=== PATIENT | female | born 2000 | race Caucasian/White ===

== ENCOUNTER 2018-06-29 20:44 | Emergency (ER) | payer OTHER ==
[2018-06-29] MEDS ORDERED: methylPREDNISolone NA SUCC 125 MG/2 ML VIAL IVPB ONE (20:48)
[2018-06-29] MEDS ORDERED: FAMOTIDINE 20 MG/50 ML IVPB 20 MG/50 ML MG IVPB ONE (20:48)
[2018-06-29 21:21] VITALS: BP 128/91; PULSE 97; TEMP 98.2; BMI 23.2
--- NOTE | 2018-06-29 21:26 | PDOC ---
Documentation entered by Ashleigh Reyes SCRIBE, acting as scribe for Srinivas Desai MD. Srinivas Desai MD: This documentation has been prepared by the Eric merritt Daisy, SCRIBE, under my direction and personally reviewed by me in its entirety. I confirm that the documentation accurately reflects all work, treatment, procedures, and medical decision making performed by me. History of Present Illness - General Chief Complaint: Allergic Reaction Stated Complaint: ALLERGIC REACTION Time Seen by Provider: 06/29/18 20:48 History Source: Patient Exam Limitations: No Limitations - History of Present Illness Initial Comments: 06/29/18 20:48 The patient is a 18YOF with a known peanut allergy who presents to the ER for possible allergic reaction that began approximately 20 minutes ago. She states she was eating [place] food when she noticed lip swelling, throat itchiness, and facial itchiness. Pt noticed symptoms after eating a few bites of food. Did not see any peanuts in her food but thinks there might have been some cross contamination. Patient's father gave her a benadryl, but it was . She did not have her epi pen with her at the time. Pt denies tongue swelling, difficulty breathing, difficulty swallowing. Denies rash but states her face is itchy. She states she has had similar allergic reaction in the past where she experienced difficulty breathing, vomiting, and diffuse hives. Pt has never been intubated. Denies shortness of breath, chest pain, tongue swelling or rashes. Allergies: Peanut Social: Denies toxic habits Past History - Past Medical History Allergies/Adverse Reactions: Allergies Allergy/AdvReac Type Severity Reaction Status Date / Time nut - unspecified Allergy Verified 06/29/18 21:02 NUTS Allergy Uncoded 06/29/18 20:46 Home Medications: Ambulatory Orders Methylphenidate HCl [Concerta] 54 mg PO DAILY 06/29/18 - Immunization History Immunization Up to Date: Yes - Suicide/Smoking/Psychosocial Hx Smoking Status: No Smoking History: Never smoked Number of Cigarettes Smoked Daily: 0 Review of Systems - Review of Systems Able to Perform ROS?: Yes Comments:: 06/29/18 20:56 "GENERAL/CONSTITUTIONAL: No fever or chills. No weakness. HEAD, EYES, EARS, NOSE AND THROAT: No change in vision. No ear pain or discharge. (+) throat itchiness. (+) facial itchiness. (+) lip swelling. CARDIOVASCULAR: No chest pain, no shortness of breath, no loss of consciousness RESPIRATORY: No cough, wheezing, or hemoptysis. GASTROINTESTINAL: No nausea, vomiting, diarrhea or constipation. GENITOURINARY: No dysuria, frequency, or change in urination. MUSCULOSKELETAL: No joint or muscle swelling or pain. No neck or back pain. SKIN: No rash NEUROLOGIC: No vertigo, no change in strength/sensation. ENDOCRINE: No increased thirst. No abnormal weight change. HEMATOLOGIC/LYMPHATIC: No anemia, easy bleeding, or history of blood clots. ALLERGIC/IMMUNOLOGIC: No hives or skin allergy. *Physical Exam - Physical Exam Comments: 06/29/18 20:54 GENERAL: Awake, alert, and fully oriented, in no acute distress. HEAD: No signs of trauma EYES: PERRLA, EOMI, sclera anicteric, conjunctiva clear ENT: Auricles normal inspection, hearing grossly normal, nares patent, oropharynx clear without exudates. (+) mild lip swelling. no tongue or uvula swelling. NECK: Nontender, no stepoffs, Normal ROM, supple, no lymphadenopathy, JVD, or masses LUNGS: Lungs clear. No stridor. No wheezing. HEART: Regular rate and rhythm, normal S1 and S2, no murmurs, rubs or gallops ABDOMEN: Soft, nontender, normoactive bowel sounds. No guarding, no rebound. No masses EXTREMITIES: Normal range of motion, no edema. No clubbing or cyanosis. No cords, erythema, or tenderness NEUROLOGICAL: Cranial nerves II through XII intact. SKIN: Warm, Dry, normal turgor, no rashes or lesions noted." Medical Decision Making - Medical Decision Making 06/29/18 21:25 18 F with allergic reaction. No sign of airway compromise at this time. No wheezing, no stridor, no tongue or uvula swelling. - Benadryl, pepcid, steroids 06/29/18 23:37 Pt reassessed - now has complete resolution of symptoms. Pt with no residual lip swelling. Lungs clear Pt is well appearing, with normal vitals. Clinically stable for DC at this time. I discussed the physical exam findings, ancillary test results and final diagnoses with the patient. I answered all of the patient's questions. The patient was satisfied with the care received and felt comfortable with the discharge plan and treatment plan. The patient agrees to follow up with the primary care physician within 24-72 hours. *DC/Admit/Observation/Transfer Diagnosis at time of Disposition: Allergic reaction - Discharge Dispostion Disposition: HOME Condition at time of disposition: Stable - Referrals - Patient Instructions Printed Discharge Instructions: DI for General Allergic Reactions Additional Instructions: Take benadryl every 4 hours as needed for itching. Keep your epi-pen on you at all times. If you experience recurrent lip swelling, tongue swelling, difficulty breathing , or any other concerning symptoms, return to the ER immediately. Otherwise, follow up with your primary doctor within 1 week. - Post Discharge Activity - Attestations Physician Attestion: 06/29/18 23:40 I, Dr. Srinivas Desai MD, attest that this document has been prepared under my direction and personally reviewed by me in its entirety. I further attest, that it accurately reflects all work, treatment, procedures and medical decision -making performed by me.
== END 2018-06-29 23:43 | disposition home or self-care (01) ==
LOC: FER 20:44
PROC: 3E033GC Introduction of Other Therapeutic Substance into Peripheral Vein, Percutaneous Approach (ICD-10-PCS; principal; 2018-06-29)
DX: T78.40XA Allergy, unspecified, initial encounter (principal); X58.XXXA Exposure to other specified factors, initial encounter
CPT/HCPCS: 99281-25